=== PATIENT | female | born 1995 | race Caucasian/White ===

== ENCOUNTER 2018-09-19 18:53 | Emergency (ER) | payer SELFPAY ==
[~2018-09-19] VITALS: Ht 157.5 cm; Wt 62.6 kg
[2018-09-19] MEDS ORDERED: Albuterol ud Inhalation HHN ONE (19:45)
[2018-09-19] MEDS ORDERED: Tylenol #3 tab (300mg/30mg) ORAL ONE (19:45)
[2018-09-19] MEDS ORDERED: Ipratropium 0.02% Inh Soln 2.5ml UD HHN ONE (19:45)
[2018-09-19 20:16] VITALS: BP 115/75
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
[2018-09-19] MEDS ORDERED: ROBAXIN-750750 MG PO (22:04)
[2018-09-19] MEDS ORDERED: IBUPROFEN600 MG ORAL (22:04)
[2018-09-19 22:08] VITALS: BP 118/78
--- NOTE | 2018-09-19 22:08 | NUR ---
ER Nurse Note: Pt seen, treated, medically cleared for discharge by ERMD. Discharge instructions and prescriptions given with repeat verbalization by pt. Instructed pt to follow up with primary care physican within one week. Pt a&ox4, VSS, no signs of distress. ID band removed. Left with all belongings, left via own transportation.
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
== END 2018-09-19 22:08 | disposition home or self-care (01) ==
LOC: EMR 19:27
DX: S16.1XXA Strain of muscle, fascia and tendon at neck level, initial encounter (principal); V43.62XA Car passenger injured in collision with other type car in traffic accident, initial encounter; Y92.411 Interstate highway as the place of occurrence of the external cause
CPT/HCPCS: 70450; 72125; 81025; 94640; 94664; 99284